=== PATIENT | male | born 2000 | race Caucasian/White ===

== ENCOUNTER 2019-09-19 09:15 | Outpatient (CLI) | payer BC ==
--- NOTE | 2019-09-19 13:19 | MRI ---
MRI RIGHT WRIST WITHOUT CONTRAST: Date: 09/19/2019 INDICATION: History of scaphoid fracture. COMPARISON: None. FINDINGS: The scaphoid is intact. The dorsal scapholunate and lunotriquetral ligaments appear intact. The volar component of the scapholunate ligament is disrupted. The interosseous band is intact. FCR and FCU te ndons are intact. Carpal tunnel contents appear within normal limits. Mild tenosynovitis is seen with in the first dorsal compartment. Intrinsic hand musculature appears within normal limits. TFC is inta ct. IMPRESSION: 1. No acute scaphoid fracture demonstrated. There is disruption of the volar band of the scapholunat e ligament. The interosseous and dorsal band, however, appear intact. Lunotriquetral ligaments and in trinsic ligaments appear intact. 2. Mild tenosynovitis involving the first dorsal compartment may reflect a post-traumatic tenosynovi tis. POS: BH
== END 2019-09-19 09:16 | disposition home or self-care (01) ==
LOC: SCSMRI 09:15
PROVIDERS: ATTEND Orthopaedic Surgery Hand Surgery
DX: S62.024A Nondisplaced fracture of middle third of navicular [scaphoid] bone of right wrist, initial encounter for closed fracture (principal); S63.501A Unspecified sprain of right wrist, initial encounter; M65.9 Synovitis and tenosynovitis, unspecified